=== PATIENT | male | born 1955 | race Caucasian/White ===

== ENCOUNTER 2019-12-08 15:29 | Outpatient (CLI) | payer OTHER, BC ==
[2019-12-08] MEDS ORDERED: OMEP40CA42 PO (15:55)
[2019-12-08] MEDS ORDERED: SIMV40TA20 PO (15:55)
[2019-12-08] MEDS ORDERED: CHOL3000 PO (16:09)
[2019-12-08] MEDS ORDERED: TADA5TAB2 PO (16:09)
[2019-12-08] MEDS ORDERED: TAMS-11 PO (16:09)
[2019-12-08] MEDS ORDERED: UBID1CAP43 PO (16:09)
== END 2019-12-08 23:59 | disposition home or self-care (01) ==
LOC: STAR 15:29
PROVIDERS: ATTEND Podiatrist Foot & Ankle Surgery
DX: M20.20 Hallux rigidus, unspecified foot (principal)
CPT/HCPCS: 93005

== ENCOUNTER 2019-12-15 09:54 | Day surgery (SDC) | payer OTHER, BC ==
[~2019-12-15] VITALS: Ht 182.9 cm; Wt 90.5 kg
[~2019-12-15 09:54] MED LIST: CHOL3000 PO; OMEP40CA42 PO; SIMV40TA20 PO; TADA5TAB2 PO; TAMS-11 PO; UBID1CAP43 PO
[2019-12-15] MEDS ORDERED: SUMA50TA3 PO (10:28)
[2019-12-15] MEDS ORDERED: LACTATED RINGERS 1,000 ML IV SCH (10:31)
[2019-12-15] MEDS ORDERED: LIDOCAINE 1%, 20ML ONE (12:00)
[2019-12-15] MEDS ORDERED: BUPIVACAINE/PF 0.5% ONE (12:00)
[2019-12-15] MEDS ORDERED: PROPOFOL 10 MG/ML, 20ML ONE (12:16)
[2019-12-15] MEDS ORDERED: CEFAZOLIN 1,000 MG ONE (12:16)
[2019-12-15] MEDS ORDERED: ROCURONIUM 10 MG/ML,10ML ONE (12:16)
[2019-12-15] MEDS ORDERED: DEXAMETHASONE 4 MG/ML, 1ML ONE (12:16)
[2019-12-15] MEDS ORDERED: SUCCINYLCHOLINE 20 MG/ML, 10ML ONE (12:16)
[2019-12-15] MEDS ORDERED: ONDANSETRON 2MG/ML, 2ML ONE (12:16)
[2019-12-15] MEDS ORDERED: MIDAZOLAM 1 MG/ML, 2ML ONE (12:19)
[2019-12-15] MEDS ORDERED: FENTANYL PF 100 MCG/2ML IV PRN (13:00)
[2019-12-15] MEDS ORDERED: HYDROmorphone 1 MG/ML, 1ML INJ IV PRN (13:00)
[2019-12-15] MEDS ORDERED: ONDANSETRON 2MG/ML, 2ML IVPush PRN (13:00)
[2019-12-15] MEDS ORDERED: hydrALAzine 20 MG/ML, 1ML IV PRN (13:00)
[2019-12-15] MEDS ORDERED: ALBUTEROL SULFATE 2.5 MG/3 ML NPPB PRN (13:00)
[2019-12-15] MEDS ORDERED: LABETALOL 5MG/ML, 20ML IV PRN (13:00)
[2019-12-15] MEDS ORDERED: MEPERIDINE/PF 25MG/0.5ML IVPush PRN (13:00)
[2019-12-15] MEDS ORDERED: KETOROLAC 30 MG/1 ML IV PRN (13:00)
[2019-12-15] MEDS ORDERED: METOCLOPRAMIDE 5 MG/ML, 2ML IV PRN (13:00)
[2019-12-15] MEDS ORDERED: OXYcodone 5 MG/5 ML ORAL.SOL UDC PO PRN (13:00)
[2019-12-15] MEDS ORDERED: PROMETHAZINE 25 MG/ML, 1ML IV PRN (13:00)
[2019-12-15] MEDS ORDERED: DIAZEPAM 5 MG/ML, 2ML IV PRN ×2 (13:00)
[2019-12-15] MEDS ORDERED: OXYcodone 5 MG/5 ML ORAL.SOL UDC ONE (14:09)
[2019-12-15] MEDS ORDERED: KETOROLAC 30 MG/1 ML ONE (14:10)
[2019-12-15] MEDS ORDERED: ACETAMINOPHEN 325 MG TABLET ONE (14:42)
[2019-12-15] MEDS ORDERED: ACETAMINOPHEN 650 MG/20.3 ML UDC ONE (14:43)
[2019-12-15] MEDS ORDERED: FENTANYL PF 100 MCG/2ML ONE (14:54)
[2019-12-15] MEDS ORDERED: ACETAMINOPHEN 325 MG TABLET PO PRN (15:00)
== END 2019-12-15 16:25 | disposition home or self-care (01) ==
LOC: OUT 09:54
PROVIDERS: ATTEND Podiatrist Foot & Ankle Surgery
DX: M20.21 Hallux rigidus, right foot (principal); M19.071 Primary osteoarthritis, right ankle and foot; M25.774 Osteophyte, right foot; L60.0 Ingrowing nail; L03.90 Cellulitis, unspecified; Z88.8 Allergy status to other drugs, medicaments and biological substances; Z98.890 Other specified postprocedural states
CPT/HCPCS: 28291; C1713; C1776; J0330; J0690; J1100; J1885; J2250; J2405; J2704; J3010; J7120